=== PATIENT | female | born 1995 | race African-American/Black ===

== ENCOUNTER 2016-10-27 16:41 | Emergency (ER) | payer MEDICAID ==
[2016-10-27] MEDS ORDERED: ACETAMINOPHEN 325 MG TAB ONE (20:49)
[2016-10-28] MEDS ORDERED: DUONEB INH ONE ×2 (00:27)
[2016-10-28] MEDS ORDERED: PREDNISONE 50 MG TAB ONE (00:28)
[2016-10-28] MEDS ORDERED: PREDNISONE 10 MG TAB ONE (00:28)
[2016-10-28] MEDS ORDERED: ACETAMINOPHEN 325 MG TAB ONE (02:41)
== END 2016-10-28 02:50 | disposition home or self-care (01) ==
LOC: ER 16:41
CPT/HCPCS: 71020; 81003; 81025; 87804; 87880; 94640

== ENCOUNTER 2016-11-07 23:51 | Emergency (ER) | payer MEDICAID, OTHER | END 2016-11-08 01:07 | disposition home or self-care (01) | LOC: ER 11-08 00:10 | DX: S61.205A Unspecified open wound of left ring finger without damage to nail, initial encounter (principal); S60.042A Contusion of left ring finger without damage to nail, initial encounter; W23.0XXA Caught, crushed, jammed, or pinched between moving objects, initial encounter; F17.210 Nicotine dependence, cigarettes, uncomplicated ==